=== PATIENT | male | born 1970 | race African-American/Black ===

== ENCOUNTER 2016-11-05 20:05 | Inpatient (IN) | payer BC ==
[~2016-11-05] VITALS: Ht 185.4 cm; Wt 110.3 kg
--- NOTE | ~2016-11-05 | 2DMMODE ---
[facility] [place] [address] 2 D/M-MODE ECHOCARDIOGRAM Name: KALLI BURROWS Room #: 150-7 ADM IN .R.#: [id number] Admission: 11/05/16 Attend Phys: Sarah Mahan Discharge: Date of : 68 Date of Service: 11/07/16 1420 Report #: [id number] THIS REPORT FOR: //name// Transthoracic Echocardiography Ordering David Alanis MD physician: Referring MD Arlette Patterson, physician: Houston Stanton Boarder Steam: SHAMIR Kim Indications/History: HTN, Chest pain. BP: 165 / HR: 75bpm Height: 73in Weight: 247.5lb 106 Study data: M-mode, complete 2D, complete spectral Doppler, and color Doppler. Location: Echo laboratory. Routine. Image quality was good. 2D measurements Normal Normal LVID ED 39mm 36-57 IVS ED 13mm 6-11 LVID ES 28mm 23-40 LVPW ED 12.7mm 6-11 LA volume 33ml/m2 16-28 AoRoot diam 34.2mm 21-37 index ED LVOT diameter 22mm 18-23 Findings: Left ventricle: The cavity size was normal. Wall thickness was increased in a pattern of mild LVH. Systolic function was normal. The estimated ejection fraction was in the range of 55% to 60%. Wall motion was normal. Right ventricle: The cavity size was normal. Systolic function was normal. Right atrium: The atrium was at the upper limits of normal in size. Left atrium: The atrium was at the upper limits of normal in size. Volume index: 33ml/m2 (S). [address] [address] 2 D/M-MODE ECHOCARDIOGRAM Name: KALLI BURROWS Dorothy Room #: 150[facility] IN ..#: [id number] Admission: 12/25/16 Attend Phys: Sarah Mahan Discharge: Date of : 68 Date of Service: 11/07/16 1420 Report #: [id number] Aortic valve: Structurally normal valve. Trileaflet. Doppler: There was no stenosis. No regurgitation. Peak velocity: 148cm/s (S). Mitral valve: Structurally normal valve. Doppler: There was no evidence for stenosis. Mild regurgitation. Peak E-wave velocity: 92.7cm/s. Peak gradient: 3.4mm Hg (D). Peak A-wave velocity: 100.5cm/s. Tricuspid valve: Structurally normal valve. Doppler: There was no evidence for stenosis. Trivial regurgitation. Regurgitant peak velocity: 242.4cm/s. Peak RV-RA gradient: 24mm Hg (S). Pulmonic valve: Structurally normal valve. Doppler: There was no evidence for stenosis. No regurgitation. Pericardium: There was no pericardial effusion. Aorta: Aortic root: The aortic root was normal in size. Pulmonary artery: Systolic pressure was estimated to be 29mm Hg. Diastolic function: Doppler parameters are consistent with abnormal left ventricular relaxation (grade 1 diastolic dysfunction). Systemic veins: Inferior vena cava: The vessel was normal in size; the respirophasic diameter changes were in the normal range (= 50%). <ELECTRONICALLY SIGNED> By: Ignacio Beckham MD 11/08/16 0910 1420 9 Ignacio Beckham MD /anthony
--- NOTE | ~2016-11-05 | O ---
[facility] [address] [address] OPERATIVE REPORT Name: KALLI BURROWS Room #: 204-P ADM IN M.R.#: [id number] Admission: 11/05/16 Attend Phys: Sarah Hilton Discharge: Date of : 68 Report #: [id number] THIS REPORT FOR: //name// CC: Sarah Chong PREOPERATIVE DIAGNOSIS: Coronary artery disease. POSTOPERATIVE DIAGNOSIS: Coronary artery disease. OPERATION: 1. Coronary artery bypass x 6 including left internal mammary artery to left anterior descending artery, saphenous vein to diagonal, ramus and second marginal and saphenous vein to posterior descending and posterolateral branches of the right coronary and endoscopic vein harvest, left greater saphenous vein. SURGEON: Mohsen Álvarez M.D. RUBBER DOWN: Avel. ANESTHESIA: General. INDICATIONS: The patient is a 46-year-old with severe 3-vessel coronary artery disease. The patient presented with acute coronary syndrome. Troponin peaked at 5. Cardiac catheterization by Dr. Alanis demonstrated severe 3-vessel disease. Unfortunately, there was diffuse and distal disease beyond the range of bypass. Left ventricular function satisfactory. FINDINGS AND TECHNIQUE: After general anesthesia was established, saphenous vein was harvested using an endoscopic approach and prepared for use as a conduit. Exposure was obtained through median sternotomy. Left internal mammary artery was harvested. Pericardial well was made. Cannulation sutures were placed. Heparin was given. Aorta was cannulated. Right atrium was cannulated. Cardioplegia needle was positioned in the aortic root. Retrograde cardioplegic catheter was placed in coronary sinus. Cardiopulmonary bypass was established. The aorta was cross clamped antegrade then retrograde cardioplegia were given. Ice was poured in the pericardial well. The heart was stopped. During electromechanical arrest, the distal anastomoses were performed and end-to-side anastomosis was made between vein and the posterolateral branch. This was diffusely diseased vessel and we needed to make the bypass quite distally in this vessel. Cold cardioplegia was given. Same segment of vein was sewn in end-to-side fashion to posterior descending artery and the same situation applied that the vessel was diffusely diseased and the anastomosis was made in the distal portion. Cold cardioplegia was given. A separate segment of [facility] [address] [address] OPERATIVE REPORT Name: KALLI BURROWS Room #: 204-P [facility] IN .R.#: [id number] Admission: 11/05/16 Attend Phys: Sarah Hilton Discharge: Date of : 68 Report #: [id number] vein was sewn in end-to-side fashion to the second marginal. This was a relatively large vessel. Cold cardioplegia was given. We inspected the first marginal, but I thought it was too small for bypass. Cold cardioplegia was given. A byuw-jj-iidl anastomosis was then made to ramus or proximal marginal. Cold cardioplegia was given. This was a decent size vessel. Cold cardioplegia was given. Same segment of vein was sewn in end-to-side fashion to the large diagonal. Cold cardioplegia was given. Left internal mammary artery was sewn in end-to-side fashion to left anterior descending artery. Patency of this vessel was checked with the temperature technique. Cold cardioplegia was given. Two proximal anastomoses were performed. When these were complete, warm retrograde cardioplegia was given followed by warm continuous blood to the coronary sinus. When this infusion was complete, the crossclamp was removed, de-airing maneuvers were performed. The anastomoses were inspected and found to be satisfactory. As the patient warmed, nice cardiac activity resumed, chest tubes and pacing wires were placed, a marker was placed around the proximal anastomoses. When the patient was warmed, he was weaned, he was weaned from cardiopulmonary bypass, venous cannula was removed. Protamine was given, the aortic cannula was removed. Flows were measured in the bypass grafts. Flow in the graft to the right side grafts was 54 mL per minute. Flow in the graft to the left-sided vein was 98 mL per minute. A good Doppler signal was audible in the internal mammary artery. Total cross clamp time was 116 minutes, total pump time was 133 minutes. When hemostasis was satisfactory, chest was irrigated with antibiotic solution and closed in the usual fashion. The patient was taken to the Intensive Care Unit in good condition having tolerated the procedure well. All counts reported as correct. <ELECTRONICALLY SIGNED> By: Mohsen Álvarez MD 11/13/16 0937 1927 2145 Mohsen Álvarez MD /nt
--- NOTE | ~2016-11-05 | EKG ---
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1970 Requested By: Huang Vallecillo Order Number: [id number] MD: Dany Díaz Measurements Intervals [place] Rate: 84 P: 49 [place]: 156 QRS: -7 QRSD: 87 T: 22 QT: 415 QTc: 491 Interpretive Statements Sinus rhythm Borderline prolonged QT interval Compared to ECG 11/09/2016 06:29:59 ST (T wave) deviation no longer present Electronically Signed On 11-14-2016 8:31:15 LIQUEFIED PETROLEUM GASFITTER by Dany Díaz [email or web address] <ELECTRONICALLY SIGNED> By: Dany Díaz MD, [facility] 11/14/16 0831 0758 0758 Dany Díaz MD, [facility] /EPI
--- NOTE | ~2016-11-05 | HC ---
[facility] [address] CONSULTATION Name: KALLI BURROWS Room #: 204-P ADM IN M.R.#: [id number] Admission: 11/05/16 Attend Phys: Sarah Hilton Discharge: Date of : 68 Report #: [id number] THIS REPORT FOR: //name// CC: ERENDIRA Chong DATE OF SERVICE: 11/07/2016 We were asked to see the patient by Dr. Alanis. HISTORY OF PRESENT ILLNESS: The patient is a 46-year-old with coronary artery disease. The patient was admitted November 05. He presented with acute chest pain. This was midsternal chest pain without radiation, that occurred when he was taking presents downstairs to the tree. The patient states that he had been fine up until this time. There is one remote episode several years ago of a similar nature of chest pain and the patient had been seen in the Emergency Department at that time, but released because his enzymes were normal. On this occasion, however, troponin was 0.8 and then 3.32 and then ultimately 5. Heparin and nitroglycerin drips were started and chest pain resolved. Cardiac catheterization was done today. This showed severe 3-vessel coronary disease including 70% LAD lesions, 60% diagonal, 99% proximal circumflex, 70% mid circumflex and 70% mid and proximal right coronary lesions with a 90% PDA stenosis. Left ventricular function is satisfactory. There is distal disease seen on the LAD; however, it may be beyond the scope of bypass. PAST MEDICAL HISTORY: Significant for hypertension, hypercholesterolemia. Denies history of diabetes mellitus. MEDICATIONS: Includes hydrochlorothiazide, Motrin, azilsartan, chlorthalidone, Bystolic, clonidine, irbesartan and spironolactone. ALLERGIES: None known. FAMILY HISTORY: The patient is adopted. SOCIAL HISTORY: Former one pack a day smoker, now claims to have quit cigarette smoking 3 years ago, but smokes a cigar a day. REVIEW OF SYSTEMS: Generally, no constitutional symptoms of fatigue or sleeping problems, fever or weight change. HEENT: No headache, vertigo, hearing problems, vision problems. [facility] [address] [place] [address] CONSULTATION Name: KALLI BURROWS Room #: 204-P [facility] IN ..#: [id number] Admission: 11/05/16 Attend Phys: Sarah Hilton Discharge: Date of : 68 Report #: [id number] RESPIRATORY: Some shortness of breath on exertion, no shortness of breath at rest. No wheeze, cough, sputum production. CARDIAC: As mentioned, pain two days ago, no jaw pain, arm pain, no palpitations. SKIN: No rash or infection. ENDOCRINE: Feet are occasionally cold, no night sweats, no lack of concentration. GASTROINTESTINAL: No nausea, vomiting, diarrhea, constipation. GENITOURINARY: No urgency, frequency or dysuria. NEUROLOGIC: No seizures, no neuropathy. PSYCHIATRIC: No hallucination or depression. MUSCULOSKELETAL: Denies bone and joint pain. IMMUNOLOGIC: No lupoid rash, no rheumatoid ____. HEMATOLOGIC: No anemia. LYMPHATIC: No swelling. PHYSICAL EXAMINATION: VITAL SIGNS: Blood pressure 140/99, pulse rate 71, respiratory rate 18, temperature 37.1, O2 sat 95 on room air. HEENT: Normocephalic, gaze conjugate. Pupils round and equal. No arcus. No icterus. NECK: No lymphadenopathy, no bruit. CHEST: Clear to auscultation. HEART: Rhythm regular, no murmurs. ABDOMEN: Soft, no mass, no tenderness, slightly distended. EXTREMITIES: No clubbing, cyanosis or edema. SKIN: No rash or infection. Normal color and turgor. EXTREMITIES: Pulses 2+ femoral bilaterally, 2+ popliteal bilaterally, 1+ dorsalis pedis and posterior tibial bilaterally. NEUROLOGIC: No motor or sensory dysfunction. Oriented and appropriate. MUSCULOSKELETAL: No bone or joint dyssymmetry or deformity. PSYCHIATRIC: Shows insight into problem. Mood is either artificially elevated or depressed. ASSESSMENT: The patient has important 3-vessel coronary artery disease with good ventricular function. The patient has impressive list of antihypertensive medications and with his tobacco history and some dyslipidemia, has some risk factors for coronary disease. I agree that the disease is widely distributed and that surgery would be a better alternative at the outset. Risks and details were discussed. Options and alternatives were reviewed. The patient understands that risks include but are not limited to bleeding, infection, anesthesia risks, heart and lung problems, stroke and options and alternatives were reviewed. The patient understands all of this and wishes to proceed. We hope to proceed with surgery tomorrow morning. [address] [address] CONSULTATION Name: KALLI BURROWS Room #: 204-P [facility] IN M.R.#: [id number] Admission: 11/05/16 Attend Phys: Sarah Hilton Discharge: Date of : 68 Report #: [id number] Thank you for the consult. <ELECTRONICALLY SIGNED> By: Mohsen Álvarez MD 11/13/16 0937 1346 2214 Mohsen Álvarez MD /nt
--- NOTE | ~2016-11-05 | EKG ---
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
--- NOTE | ~2016-11-05 | EKG ---
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
--- NOTE | ~2016-11-05 | EKG ---
[address] [place] [address] ELECTROCARDIOGRAM REPORT Name: KALLI BURROWS Room #: 236-P ADM IN M.R.#: [id number] Admission: 11/05/16 Attend Phys: Sarah Hilton Discharge: Date of : 68 Report #: [id number] THIS REPORT FOR: //name// [facility] ED Test Date: 2016-11-05 Test Time: 20:14:26 Pat Name: KALLI BURROWS Department: Room: [facility] Gender: M Algebra Teacher: SHALA : 1970 Requested By: Nadine Ferrari Order Number: [id number] MD: Benji Dang Measurements Intervals [place] Rate: 75 P: 11 [place]: 172 QRS: 13 QRSD: 100 T: -17 QT: 379 QTc: 424 Interpretive Statements Sinus rhythm Borderline repolarization abnormality No previous ECG available for comparison Electronically Signed On 11-09-2016 15:40:42 BRAND MANAGER by Benji Dang [email or web address] <ELECTRONICALLY SIGNED> By: Benji Dang MD 11/09/16 1540 13 13 Benji Dang MD /ARNOL
--- NOTE | ~2016-11-05 | HC ---
[facility] [place] [address] CONSULTATION Name: KALLI BURROWS Room #: 206-P ADM IN M.R.#: [id number] Admission: 11/05/16 Attend Phys: Sarah Hilton Discharge: Date of : 68 Report #: [id number] THIS REPORT FOR: //name// CC: Sarah Chong HISTORY OF PRESENT ILLNESS: The patient is a 46-year-old -[place] male well known to myself. I see him irregularly. Although he has been very stable from a cardiovascular perspective, predominantly I have seen him for hypertension. He has not had a history of documented coronary disease. He denies PND or orthopnea, but has had an onset of sharp chest pain going up and down the steps on Megan Antonella night. This waxed and waned throughout the night and on yesterday, [place] and subsequently brought in to the emergency room. Somewhat of an atypical presentation and that inspiration seemed to make it worse. There have been no history or any change in his exercise tolerance. No PND or orthopnea. He is relatively active, but does not regularly exercise. A 54-igyz-zneg smoker, tobacco, but quit 3 years ago. Has a cigar a day, which he does inhale more of a cigarillo type. EKG has some nonspecific changes. His troponin has a slight elevation. He is pain free on a heparin and nitro drip. He was hypertensive upon admission. I put him on edarbyclor. Done well with the edarbyclor 40/25. Hydrochlorothiazide had been stopped, occasional ibuprofen which I will hold right now and Bystolic 20 mg a day. clonidine, Bystolic and edarbyclor. Clonidine 0.3 at night. PAST MEDICAL HISTORY: Positive for refractory hypertension, hypertriglyceridemia, currently over 400, hypercholesterolemia, DJD, tobacco use. SOCIAL HISTORY: He is with children. 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 No drugs. No significant alcohol. Smokes cigars. FAMILY HISTORY: Negative for premature coronary disease. REVIEW OF SYSTEMS: Essentially negative except for some occasional nocturia. LABORATORY WORK: Sodium 140, potassium 3.5, BUN 26, creatinine 1.7. Cholesterol 205, triglycerides 430, troponin is 3.32. Chest CT is normal. PHYSICAL EXAMINATION: GENERAL: Pleasant, alert. He is on heparin, nitro drip. VITAL SIGNS: Blood pressure 150/92. HEENT: Eyes reveal xanthelasmas. Pharynx is clear. NECK: Shows preserved upstrokes without JVD or bruits. LUNGS: Clear. CARDIOVASCULAR: soft S4, S1, S2. ABDOMEN: Soft except some abdominal bruit. EXTREMITIES: No edema. Pulses intact. [facility] [address] [place] [address] CONSULTATION Name: KALLI BURROWS Room #: 206-P ADM IN M.R.#: [id number] Admission: 11/05/16 Attend Phys: Sarah Hilton Discharge: Date of : 68 Report #: [id number] NEUROLOGIC: Nonfocal. SKIN: Warm and dry without xanthoma or ulcer. MUSCULOSKELETAL: No gross joint deformity. ASSESSMENT: 1. Non-ST elevation myocardial infarction, currently pain free. Troponin 3.3. 2. Refractory hypertension. 3. Hypertriglyceridemia. 4. Hypercholesterolemia. RECOMMENDATIONS AND PLAN: 1. We will hold the NSAIDs. 2. Chronic kidney disease. We will hold the ARB. We will start initiating fluids in the a.m., proceed to the catheterization lab in the a.m. to delineate the anatomy. We will continue the heparin and nitro drips until that time, repeat the EKG and echo in the morning. Risks, benefits, alternatives discussed with the patient and his . They do elect to proceed in the a.m. He will notify the nursing if he has any recurrent chest pain. <ELECTRONICALLY SIGNED> By: David Alanis MD, FACC 11/07/16 0955 0959 1219 David Alanis MD, FACC /nt
--- NOTE | ~2016-11-05 | EKG ---
[address] [place] [address] ELECTROCARDIOGRAM REPORT Name: KALLI BURROWS Room #: 236-P ADM IN M.R.#: [id number] Admission: 11/05/16 Attend Phys: Sarah Hilton Discharge: Date of : 68 Report #: [id number] THIS REPORT FOR: //name// [facility] Test Date: 2016-11-07 Test Time: 11:02:22 Pat Name: KALLI BURROWS Department: Room: [facility] Gender: M Recycling Operator: Andi NAVARRO : 1970 Requested By: David Alanis Order Number: [id number] MD: Benji Dang Measurements Intervals [place] Rate: 72 P: 28 [place]: 176 QRS: 2 QRSD: 90 T: 51 QT: 414 QTc: 454 Interpretive Statements Sinus rhythm No previous ECG available for comparison Electronically Signed On 11-10-2016 10:39:51 SEAT MAKER by Benji Dang [email or web address] <ELECTRONICALLY SIGNED> By: Benji Dang MD 11/10/16 1039 1102 1102 MD ROSSY Hernandes
--- NOTE | ~2016-11-05 | HC ---
[facility] [place] [address] CONSULTATION Name: KALLI BURROWS Room #: 204-P ADM IN M.R.#: [id number] Admission: 11/05/16 Attend Phys: Sarah Hilton Discharge: Date of : 68 Report #: [id number] THIS REPORT FOR: //name// CC: Sarah Villarrealky DATE OF SERVICE: 11/09/2016 REASON FOR CONSULTATION: Acute kidney injury, post coronary artery bypass surgery. HISTORY OF PRESENT ILLNESS: This 46-year-old male has no known prior history of renal difficulties. He has had significant and difficult to control hypertension. He initially presented to the hospital on after developing chest pain and shortness of breath while carrying packages. Evaluation revealed evidence of a non-ST elevation myocardial infarction with elevated troponin. He subsequently underwent cardiac catheterization revealing evidence of significant coronary artery disease including an LAD diagonal of 75% calcified lesion, right coronary artery with multiple high-grade lesions. Renal arteries were studied at that time and were widely patent. LV ejection fraction was 60%. The patient underwent coronary artery bypass surgery by Dr. Álvarez on November 08 which was uncomplicated. Postoperatively, his blood pressure proved difficult to control and he developed a rising serum creatinine with a value which peaked at 2.1 prompting renal consultation. Of note is that the patient's glucose values have been on the high side during the course of this hospitalization. Hemoglobin A1c has been obtained and is 6.1. PAST MEDICAL HISTORY: Remarkable for hypertension as described. He has dyslipidemia. MEDICATIONS: On admission include clonidine 0.3 mg at bedtime, Bystolic 20 mg daily, ibuprofen 200 mg q.4 hours p.r.n., hydrocodone 25 mg daily, azilsartan/chlorthalidone 40/25 daily. PERSONAL AND SOCIAL HISTORY: The patient is . He does use tobacco in the form of cigars daily. He does not use alcohol and has no history of substance abuse. REVIEW OF SYSTEMS: Remarkable for dyspnea on exertion. He denies productive cough, hemoptysis, nausea, vomiting, diarrhea, constipation or GI blood loss. PHYSICAL EXAMINATION: GENERAL: Reveals a well-developed, well-nourished male appearing his stated age, in no acute distress. VITAL SIGNS: On Cardene drip at this time are 110/56, pulse 84, respirations 18. [address] [address] CONSULTATION Name: KALLI BURROWS Room #: 204-P [facility] IN M.R.#: [id number] Admission: 11/05/16 Attend Phys: Sarah Hilton Discharge: Date of : 68 Report #: [id number] SKIN: Warm and dry without rash or erythema. There is no gross clubbing, cyanosis, edema or adenopathy. HEENT: The head is normocephalic and atraumatic. The sclerae are white. Conjunctivae are not injected. The pharynx is benign. NECK: Supple. LUNGS: Lung yang are grossly clear to percussion and auscultation. CARDIOVASCULAR: Reveals a regular rate and rhythm without rub. ABDOMEN: Soft and nontender. NEUROLOGIC: Reveals the patient to be alert and cooperative with a nonfocal exam. LABORATORY STUDIES: Available at the time of consultation include sodium 139, potassium 4.1, chloride 103, CO2 21, BUN 32, creatinine 1.9, glucose 138. White blood cell count 26,700, hemoglobin 12.6, hematocrit 37.7, platelet count 232,000. Urinalysis preoperatively clear yellow urine, specific gravity less than 1.005, pH 6, negative for glucose, ketones, bilirubin, trace blood. ASSESSMENT: 1. Renal insufficiency in the setting of accelerated hypertension on Cardene drip, post coronary artery bypass surgery. The patient's current blood pressure is relatively low Compared to his usual treated blood pressure. In the setting of coronary artery bypass surgery and suspected degree of hypertensive nephrosclerosis. This is likely accountable for his present renal dysfunction. His initial urinalysis shows no indications of any proteinuria or cellular activity making an intrinsic renal process such as glomerulonephritis quite unlikely. At this time, I would add lisinopril to his current antihypertensive regimen including amlodipine, beta ethel and attempt to wean and discontinue the Cardene. He is also showing signs of prediabetes and should be counseled in this regard. 2. Status post coronary artery bypass surgery. 3. Dyslipidemia. PLAN: I will obtain urine studies including sodium, creatinine and protein and initiate medication changes as above. We will follow the patient closely with you. I have counseled the patient and his family in this regard. We will follow closely. <ELECTRONICALLY SIGNED> By: Nikolay Chi MD 11/13/16 0703 [id number] [id number] Nikolay Chi MD /nt
--- NOTE | ~2016-11-05 | CATHLAB ---
[facility] [address] [place] [address] INVASIVE PROCEDURE REPORT Name: KALLI BURROWS Room #: 204-P [facility] IN .R.#: [id number] Admission: 11/05/16 Attend Phys: Sarah Mahan Discharge: 11/13/16 Date of : 68 Date of Service: 11/07/16 0949 Report #: [id number] THIS REPORT FOR: //name// CC: Sarah Chong PROCEDURES: Left ventriculography, coronary angiography. DESCRIPTION OF PROCEDURE: The patient brought to the catheterization lab, had a non-STEMI, pain-free heparin and nitroglycerin. Right groin prepped and draped in sterile manner. Then 1% Xylocaine was used for local anesthesia. Versed was given for conscious sedation. High-grade lesion in the right, proximal right 70, midvessel 75, mid distal 80, PDA mid high grade. Proximal circumflex prior to trifurcation, vessel subtotally occluded. The first OM was well preserved, the second OM subtotal, third OM mildly diseased, eccentric proximal LAD lesion, calcified 75% at the diagonal takeoff, and there is a distal apical lesion in the LAD. LV function is preserved. Selective renal arteries due to refractory hypertension, widely patent single bilateral renal arteries with the JR4. Mynx closure was utilized. May need CV surgical consultation. Complex 3-vessel disease with preserved LV function. HEMODYNAMICS: Aortic 160/100, LV 164/12. IMPRESSION: 1. Left main, mild, fairly well preserved left main, large with mild disease. LAD has an eccentric proximal lesion at the diagonal takeoff 70-75% with calcification in an apical lesion in the LAD, otherwise, preserved proximal diagonal 50 to 60. 2. Circumflex proximal lesion subtotal giving rise to 3 OM branches, first OM fairly well preserved, OM2 high grade subtotal occlusion proximal with mid to distal vessel widely patent OM3 mildly diseased. 3. Dominant right with multiple high-grade lesions and ____ 70-75% proximal ____, mid distal and then a mid PDA lesion which is subtotal. 4. Normal left ventricular size and systolic function, EF 60%. 5. Single bilateral renal arteries widely patent. RECOMMENDATIONS: CV surgical consultation regarding revascularization with bypass ____ is a very complex anatomy. Further discussion with CV surgery. Hemodynamically stable and pain free. Transfer back to CCU. Mynx closure device was utilized at the femoral artery without complications. <ELECTRONICALLY SIGNED> By: David Alanis MD, FACC 11/22/16 0935 0949 09 David Alanis MD, FACC /nt
--- NOTE | ~2016-11-05 | HC ---
[facility] [place] [address] CONSULTATION Name: KALLI BURROWS Room #: 236-P [facility] IN M.R.#: [id number] Admission: 11/05/16 Attend Phys: Sarah Hilton Discharge: Date of : 68 Report #: [id number] THIS REPORT FOR: //name// CC: Sarah Chong INFECTIOUS DISEASE CONSULTATION REASON FOR CONSULTATION: I was asked to evaluate concerning leukocytosis. HISTORY OF PRESENT ILLNESS: The patient is a 46-year-old with underlying history of hypertension, hyperlipidemia, presented on 11/05/2016, with hypertensive urgency and non-STEMI. Coronary catheterization on 11/07/2016 revealed significant obstructive vascular disease and underwent coronary bypass grafting on 11/08/2016. Postoperatively, he has been relatively stable. He has been extubated. He remains on oxygen per nasal cannula. He has had no significant cough or sputum production. No gross aspiration. His chest tubes remain in place. No cardiac dysrhythmias of note. Neurologically he has been intact. He has a right IJ catheter in place, indwelling Mckeon catheter. His white count on presentation was 14,000, increased to 16,000 preoperatively and has been ____ postoperatively. The patient denies any infectious symptoms prior to his presentation. ALLERGIES: None. MEDICATIONS: As noted on his MAR, now on cefazolin for his perioperative prophylaxis. PAST MEDICAL HISTORY: Hypertension, hyperlipidemia. FAMILY HISTORY: Noncontributory. He is adopted. SOCIAL HISTORY: He is a smoker of cigarettes in the past. No significant alcohol intake. REVIEW OF SYSTEMS: Negative, has been described above, with no increased drainage from his sternum or from his left leg ____. No diarrhea. PHYSICAL EXAMINATION: VITAL SIGNS: He is afebrile, hemodynamically stable. GENERAL: He is sitting up in a chair, alert and cooperative. HEENT: Unremarkable. Right IJ catheter site unremarkable. NECK: Otherwise supple, no adenopathy. LUNGS: Crackles in the bases bilaterally, mostly on the left. CARDIOVASCULAR: Heart was regular with a rub audible anterior chest, loudest left sternal border. Chest tubes in place. ABDOMEN: Soft, nontender, no hepatosplenomegaly or mass. [facility] [address] [place] [address] CONSULTATION Name: KALLI BURROWS Room #: 236-P [facility] IN .R.#: [id number] Admission: 11/05/16 Attend Phys: Sarah Hilton Discharge: Date of : 68 Report #: [id number] EXTREMITIES: Left lower extremity incisions dressed and dry. LABORATORY STUDIES: Sodium 129, potassium 4.1, bicarbonate 21, creatinine 1.9. Liver function test normal. Hemoglobin on presentation was 15, now 12.6, platelet count 232,000, white count was 26,000. Chest x-ray showed basilar atelectasis. IMPRESSION: A 46-year-old postoperative day 1, coronary artery bypass grafting. He has leukocytosis, which I suspect is mostly reactive in nature. He does have a pericardial rub, which I suspect most likely is related to his chest tubes. We will need to follow this as tubes are removed. He has not had any fevers associated with this to suspect underlying infection or postoperative inflammatory condition. Recommend observation. We will continue his cefazolin prophylaxis. We will follow as his chest tubes are removed. <ELECTRONICALLY SIGNED> By: Haile Waldron MD 11/10/16 0958 [id number] Haile Waldron MD /nt
[~2016-11-05 20:05] MED LIST: ATENOLOL 25 MG25 M1 PO; CLONIDINE0.1 PO; HYDROCHLOROTHIA25 M1 PO
[2016-11-05 20:13] VITALS: BP 158/107
[2016-11-05] MEDS ORDERED: ALDACTONE25 MG PO (20:24)
[2016-11-05] MEDS ORDERED: AVAPRO300 MG PO (20:25)
[2016-11-05] MEDS ORDERED: EDARBYCLOR 40-1 EAC1 PO (20:26)
[2016-11-05] MEDS ORDERED: BYSTOLIC 5 MG5 M1 PO (20:26)
[2016-11-05 20:47] LABS: ABSOLUTE NEUTROPHILS 10.3 thou/uL (1.4-8.2); BASOPHILS 1.1 % (0.0-2.0); EOSINOPHILS 0.8 % (0.0-3.0); HEMOGLOBIN 15.1 gm/dL (14.0-18.0); LYMPHOCYTES 18.9 % (24.0-44.0); MCH 29.7 pg (26.0-34.0); MCHC 34.3 % (28.0-37.0); MCV 86.4 fL (80.0-100.0); MONOCYTES 10.3 % (1.0-8.0); PLATELET COUNT 329 thou/uL (150-400); POLYS 68.9 % (36.0-66.0); RBC 5.09 mil/uL (4.50-6.00); RDW 14.6 % (10.5-14.5); WBC 14.9 thou/uL (4.0-11.0)
[2016-11-05 20:48] LABS: MANUAL DIFF NO
[2016-11-05 20:53] LABS: CALCIUM 10.5 mg/dL (8.5-10.1); CREATININE 1.7 mg/dL (0.6-1.3); POTASSIUM 3.5 mmol/L (3.5-5.1)
[2016-11-05 21:05] LABS: TROPONIN-I 0.8 ng/mL (<0.04-0.07)
[2016-11-05 22:25] VITALS: BP 130/94
[2016-11-05 22:30] VITALS: BP 106/66
[2016-11-05] MEDS ORDERED: IBUPROFEN 200200 M1 PO (22:43)
[2016-11-05 22:44] VITALS: BP 106/66
[2016-11-06] VITALS (7 sets, daily range): BP systolic 110–153; BP diastolic 71–103
[2016-11-06 03:16] LABS: CHOLESTEROL 205 mg/dL (<200); HDL CHOLESTEROL 34 mg/dL (>40); TRIGLYCERIDE 430 mg/dL (<150); VLDL 86 mg/dL (<40)
[2016-11-06 03:17] LABS: SERUM ASSESSMENT Slight Lipemia
[2016-11-07 00:16] VITALS: BP 156/113
[2016-11-07 03:39] LABS: CALCIUM 9.3 mg/dL (8.5-10.1); CREATININE 1.7 mg/dL (0.6-1.3); POTASSIUM 3.6 mmol/L (3.5-5.1)
[2016-11-07 04:19] VITALS: BP 140/99
[2016-11-07 11:05] VITALS: BP 165/106
[2016-11-07 11:59] LABS: HEMATOCRIT 44.6 % (42.0-52.0); HEMOGLOBIN 15.2 gm/dL (14.0-18.0); MCH 29.6 pg (26.0-34.0); MCHC 34.1 % (28.0-37.0); MCV 86.6 fL (80.0-100.0); RBC 5.15 mil/uL (4.50-6.00); RDW 14.2 % (10.5-14.5); WBC 11.6 thou/uL (4.0-11.0)
[2016-11-07 12:07] LABS: CALCIUM 9.4 mg/dL (8.5-10.1); CREATININE 1.5 mg/dL (0.6-1.3); POTASSIUM 3.7 mmol/L (3.5-5.1)
[2016-11-07 12:13] LABS: ALBUMIN 3.6 g/dL (3.4-5.0); TOTAL BILIRUBIN 0.5 mg/dL (<0.1-1.0); TOTAL PROTEIN 7.5 g/dL (6.4-8.2)
[2016-11-07 16:44] VITALS: BP 170/112
[2016-11-07 17:06] LABS: URINE BILIRUBIN NEGATIVE (Negative); URINE BLOOD TRACE (Negative); URINE COLOR YELLOW; URINE GLUCOSE-RANDOM* NEGATIVE (Negative); URINE KETONES NEGATIVE (Negative); URINE LEUKOCYTES-REFLEX NEGATIVE (Negative); URINE PROTEIN (DIPSTICK) NEGATIVE (Negative); URINE SPECIFIC GRAVITY <= 1.005 (1.003-1.035); URINE UROBILINOGEN 0.2 E.U./dl (0.2-1.0)
[2016-11-07 19:42] VITALS: BP 135/96
[2016-11-07 23:19] VITALS: BP 152/94
[2016-11-08 05:23] VITALS: BP 147/95
[2016-11-08 05:25] VITALS: BP 164/99
[2016-11-08 06:12] LABS: HEMATOCRIT 47.6 % (42.0-52.0); HEMOGLOBIN 16.1 gm/dL (14.0-18.0); MCH 29.7 pg (26.0-34.0); MCHC 33.7 % (28.0-37.0); RBC 5.42 mil/uL (4.50-6.00); RDW 14.3 % (10.5-14.5)
[2016-11-08 06:41] LABS: CALCIUM 9.9 mg/dL (8.5-10.1); CREATININE 1.8 mg/dL (0.6-1.3)
[2016-11-08 06:44] LABS: TROPONIN-I 2.5 ng/mL (<0.04-0.07)
[2016-11-08 13:38] LABS: POC BE 0 mmol/L (-2.0 to +3.0); POC CA IONIZED 4.3 mg/dL (4.5-5.3); POC FiO2 100 %; POC GLUCOSE 159 mg/dL (70-99); POC HEMOGLOBIN 10.9 gm/dL (14.0-18.0); POC POTASSIUM 5.6 mmol/L (3.5-5.1); POC SODIUM 134 mmol/L (136-145); POC pH 7.333 (7.360-7.450)
[2016-11-08 13:38] LABS: POC BE -3 mmol/L (-2.0 to +3.0); POC CA IONIZED 4.9 mg/dL (4.5-5.3); POC FiO2 100 %; POC GLUCOSE 133 mg/dL (70-99); POC HCO3 21.7 mmol/L (22.0-26.0); POC HEMOGLOBIN 9.9 gm/dL (14.0-18.0); POC POTASSIUM 4.6 mmol/L (3.5-5.1); POC SODIUM 137 mmol/L (136-145); POC pCO2 36.8 mmHg (35.0-45.0); POC pH 7.378 (7.360-7.450)
[2016-11-08 13:38] LABS: POC BE -4 mmol/L (-2.0 to +3.0); POC CA IONIZED 4.1 mg/dL (4.5-5.3); POC FiO2 100 %; POC GLUCOSE 149 mg/dL (70-99); POC HEMOGLOBIN 10.9 gm/dL (14.0-18.0); POC POTASSIUM 5.6 mmol/L (3.5-5.1); POC SODIUM 134 mmol/L (136-145); POC pCO2 43.1 mmHg (35.0-45.0); POC pH 7.316 (7.360-7.450)
[2016-11-08 13:38] LABS: POC BE -1 mmol/L (-2.0 to +3.0); POC CA IONIZED 4.5 mg/dL (4.5-5.3); POC FiO2 100 %; POC GLUCOSE 149 mg/dL (70-99); POC HCO3 23.2 mmol/L (22.0-26.0); POC HEMOGLOBIN 12.9 gm/dL (14.0-18.0); POC POTASSIUM 4.8 mmol/L (3.5-5.1); POC SODIUM 136 mmol/L (136-145); POC pCO2 35.4 mmHg (35.0-45.0); POC pH 7.425 (7.360-7.450)
[2016-11-08 13:38] LABS: POC BE -2 mmol/L (-2.0 to +3.0); POC CA IONIZED 4.1 mg/dL (4.5-5.3); POC FiO2 100 %; POC GLUCOSE 151 mg/dL (70-99); POC HCO3 24.4 mmol/L (22.0-26.0); POC HEMOGLOBIN 10.5 gm/dL (14.0-18.0); POC POTASSIUM 5.6 mmol/L (3.5-5.1); POC SODIUM 133 mmol/L (136-145); POC pCO2 46.1 mmHg (35.0-45.0); POC pH 7.332 (7.360-7.450)
[2016-11-08 13:38] LABS: POC BE -1 mmol/L (-2.0 to +3.0); POC CA IONIZED 4.3 mg/dL (4.5-5.3); POC FiO2 100 %; POC GLUCOSE 153 mg/dL (70-99); POC HCO3 24.4 mmol/L (22.0-26.0); POC HEMOGLOBIN 10.5 gm/dL (14.0-18.0); POC POTASSIUM 5.9 mmol/L (3.5-5.1); POC SODIUM 136 mmol/L (136-145); POC pCO2 45.6 mmHg (35.0-45.0); POC pH 7.336 (7.360-7.450)
[2016-11-08 13:38] LABS: POC BE 0 mmol/L (-2.0 to +3.0); POC CA IONIZED 4.7 mg/dL (4.5-5.3); POC FiO2 100 %; POC GLUCOSE 118 mg/dL (70-99); POC HCO3 24.4 mmol/L (22.0-26.0); POC HEMOGLOBIN 14.3 gm/dL (14.0-18.0); POC POTASSIUM 4.3 mmol/L (3.5-5.1); POC SODIUM 138 mmol/L (136-145); POC pCO2 39.9 mmHg (35.0-45.0); POC pH 7.396 (7.360-7.450)
[2016-11-08 13:38] LABS: POC BE -1 mmol/L (-2.0 to +3.0); POC CA IONIZED 4.3 mg/dL (4.5-5.3); POC FiO2 100 %; POC GLUCOSE 156 mg/dL (70-99); POC HCO3 24.1 mmol/L (22.0-26.0); POC HEMOGLOBIN 10.5 gm/dL (14.0-18.0); POC POTASSIUM 5.7 mmol/L (3.5-5.1); POC SODIUM 134 mmol/L (136-145); POC pCO2 43.4 mmHg (35.0-45.0); POC pH 7.353 (7.360-7.450)
[2016-11-08 13:39] LABS: POC BE -3 mmol/L (-2.0 to +3.0); POC CA IONIZED 4.8 mg/dL (4.5-5.3); POC FiO2 100 %; POC GLUCOSE 140 mg/dL (70-99); POC HEMOGLOBIN 11.9 gm/dL (14.0-18.0); POC POTASSIUM 4.4 mmol/L (3.5-5.1); POC SODIUM 137 mmol/L (136-145)
[2016-11-08 14:00] LABS: ABG SAMPLE TYPE ARTERIAL; BE(vivo) -1.9 mmol/L (-2 to +3); HCO3 22.9 mmol/L (22.0-26.0); LACTATE 3.13 mmol/L (0.5-2.0); O2(CT) 18.8 mL/dL (15.0-23.0); PCO2 39.5 mmHg (35.0-45.0); PO2 93.5 mmHg (80.0-100.0); pH 7.382 (7.360-7.450); sO2 97.1 % (92.0-98.0); tCO2 24.2 mmol/L (24.0-30.0)
[2016-11-08 14:01] LABS: STICK SITE LINE
[2016-11-08 14:02] LABS: ABG COMMENT POST OP ON ARRIVAL; TIDAL VOLUME 750 ml
[2016-11-08 14:04] VITALS: BP 114/86
[2016-11-08 14:07] LABS: HEMATOCRIT 38.4 % (42.0-52.0); MCH 29.4 pg (26.0-34.0); MCV 86.5 fL (80.0-100.0); RBC 4.44 mil/uL (4.50-6.00); RDW 14.3 % (10.5-14.5); WBC 26.6 thou/uL (4.0-11.0)
[2016-11-08 14:15] VITALS: BP 125/85
[2016-11-08 14:15] LABS: CALCIUM 8.3 mg/dL (8.5-10.1); POTASSIUM 4.2 mmol/L (3.5-5.1)
[2016-11-08 15:32] LABS: ABG SAMPLE TYPE ARTERIAL; BE(vivo) -3.4 mmol/L (-2 to +3); HCO3 21.8 mmol/L (22.0-26.0); LACTATE 3.03 mmol/L (0.5-2.0); O2(CT) 19.4 mL/dL (15.0-23.0); O2Hb 94.9 % (92.0-98.0); PCO2 39.7 mmHg (35.0-45.0); PO2 83.8 mmHg (80.0-100.0); Pressure Support 10 cm H20; STICK SITE LINE; TIDAL VOLUME 610 ml; pH 7.357 (7.360-7.450); sO2 95.9 % (92.0-98.0)
[2016-11-08 15:33] LABS: ABG COMMENT 45 MIN CPAP TRIAL
[2016-11-08 17:13] LABS: ABG SAMPLE TYPE ARTERIAL; BE(vivo) -4.1 mmol/L (-2 to +3); LACTATE 3.63 mmol/L (0.5-2.0); O2(CT) 19.3 mL/dL (15.0-23.0); O2Hb 94.5 % (92.0-98.0); PCO2 38.8 mmHg (35.0-45.0); PO2 81.3 mmHg (80.0-100.0); STICK SITE LINE; pH 7.352 (7.360-7.450); sO2 95.6 % (92.0-98.0); tCO2 22.2 mmol/L (24.0-30.0)
[2016-11-08 17:14] LABS: Face Shield 50% %
[2016-11-08 18:52] LABS: HEMATOCRIT 39.6 % (42.0-52.0); HEMOGLOBIN 13.3 gm/dL (14.0-18.0); MCH 29.3 pg (26.0-34.0); MCHC 33.6 % (28.0-37.0); RBC 4.55 mil/uL (4.50-6.00); RDW 14.4 % (10.5-14.5); WBC 25.5 thou/uL (4.0-11.0)
[2016-11-08 18:59] LABS: CALCIUM 8.7 mg/dL (8.5-10.1); CREATININE 2.1 mg/dL (0.6-1.3); POTASSIUM 3.9 mmol/L (3.5-5.1)
[2016-11-09 05:48] LABS: ABG SAMPLE TYPE ARTERIAL; BE(vivo) -1.7 mmol/L (-2 to +3); HCO3 22.5 mmol/L (22.0-26.0); LACTATE 2.82 mmol/L (0.5-2.0); O2(CT) 17.9 mL/dL (15.0-23.0); O2Hb 94.1 % (92.0-98.0); PCO2 36.5 mmHg (35.0-45.0); PO2 71.3 mmHg (80.0-100.0); STICK SITE LINE; pH 7.408 (7.360-7.450); sO2 94.6 % (92.0-98.0); tCO2 23.6 mmol/L (24.0-30.0)
[2016-11-09 05:49] LABS: Face Shield 60 %
[2016-11-09 05:59] LABS: HEMATOCRIT 37.7 % (42.0-52.0); HEMOGLOBIN 12.6 gm/dL (14.0-18.0); MCH 29.1 pg (26.0-34.0); MCHC 33.3 % (28.0-37.0); MCV 87.6 fL (80.0-100.0); PLATELET COUNT 232 thou/uL (150-400); RBC 4.31 mil/uL (4.50-6.00); RDW 14.7 % (10.5-14.5); WBC 26.7 thou/uL (4.0-11.0)
[2016-11-09 06:02] LABS: MANUAL DIFF YES
[2016-11-09 06:20] VITALS: BP 117/71
[2016-11-09 06:24] LABS: ALBUMIN 3.2 g/dL (3.4-5.0); CALCIUM 8.7 mg/dL (8.5-10.1); CREATININE 1.9 mg/dL (0.6-1.3); MAGNESIUM 2.4 mg/dL (1.8-2.4); POTASSIUM 4.1 mmol/L (3.5-5.1); TOTAL BILIRUBIN 0.6 mg/dL (<0.1-1.0); TOTAL PROTEIN 6.4 g/dL (6.4-8.2)
[2016-11-09 06:50] LABS: ABSOLUTE NEUTROPHILS 21.6 thou/uL (1.4-8.2); METAMYELOCYTES 1 %; TOTAL CELL COUNT 100
[2016-11-09 15:01] LABS: URINE BILIRUBIN NEGATIVE (Negative); URINE BLOOD 2+ (Negative); URINE COLOR YELLOW; URINE GLUCOSE-RANDOM* NEGATIVE (Negative); URINE KETONES NEGATIVE (Negative); URINE NITRITE NEGATIVE (Negative); URINE PROTEIN (DIPSTICK) NEGATIVE (Negative); URINE SPECIFIC GRAVITY >= 1.030 (1.003-1.035); URINE UROBILINOGEN 0.2 E.U./dl (0.2-1.0)
[2016-11-09 15:10] LABS: BACTERIA 1-9 Few /HPF (None Seen); HYALINE CASTS 0-3 Few /LPF (None Seen); SQUAMOUS None Seen /LPF (0-3); URINE RBC 3-10 Few /HPF (0-2); URINE WBC 0-5 Rare /HPF (0-5)
[2016-11-09 15:11] LABS: CRYSTALS None Seen /LPF (None Seen)
[2016-11-09 22:35] VITALS: BP 118/74
[2016-11-09 23:08] LABS: GLYCOHEMOGLOBIN (HGB A1C) 6.1 % (4.8-5.6)
[2016-11-10] VITALS (8 sets, daily range): BP systolic 101–125; BP diastolic 61–77
[2016-11-10 02:06] LABS: URINE PROTEIN-RANDOM* 26.9 mg/dL (Not Estab.)
[2016-11-10 04:17] LABS: HEMATOCRIT 33.6 % (42.0-52.0); HEMOGLOBIN 11.2 gm/dL (14.0-18.0); MCH 29.5 pg (26.0-34.0); MCHC 33.4 % (28.0-37.0); MCV 88.4 fL (80.0-100.0); PLATELET COUNT 208 thou/uL (150-400); RDW 14.7 % (10.5-14.5); WBC 25.5 thou/uL (4.0-11.0)
[2016-11-10 04:25] LABS: CALCIUM 8.9 mg/dL (8.5-10.1); CREATININE 1.7 mg/dL (0.6-1.3); MAGNESIUM 2.4 mg/dL (1.8-2.4); PHOSPHORUS 3.8 mg/dL (2.5-4.9); POTASSIUM 4.4 mmol/L (3.5-5.1)
[2016-11-10 04:36] LABS: MANUAL DIFF YES
[2016-11-10 04:43] LABS: ABG SAMPLE TYPE ARTERIAL; HCO3 25.8 mmol/L (22.0-26.0); LACTATE 2.14 mmol/L (0.5-2.0); O2(CT) 15.6 mL/dL (15.0-23.0); PCO2 37.3 mmHg (35.0-45.0); PO2 67.6 mmHg (80.0-100.0); pH 7.457 (7.360-7.450); sO2 94.4 % (92.0-98.0); tCO2 26.9 mmol/L (24.0-30.0)
[2016-11-10 04:44] LABS: STICK SITE LINE
[2016-11-10 06:47] LABS: ABSOLUTE NEUTROPHILS 21.7 thou/uL (1.4-8.2); METAMYELOCYTES 1 %; TOTAL CELL COUNT 100
[2016-11-11 04:40] LABS: HEMATOCRIT 31.4 % (42.0-52.0); HEMOGLOBIN 10.4 gm/dL (14.0-18.0); MCH 29.6 pg (26.0-34.0); MCHC 33.2 % (28.0-37.0); MCV 89.3 fL (80.0-100.0); PLATELET COUNT 224 thou/uL (150-400); RBC 3.52 mil/uL (4.50-6.00); RDW 14.4 % (10.5-14.5); WBC 21.7 thou/uL (4.0-11.0)
[2016-11-11 04:41] LABS: MANUAL DIFF YES
[2016-11-11 04:53] LABS: ALBUMIN 2.7 g/dL (3.4-5.0); CALCIUM 8.9 mg/dL (8.5-10.1); CREATININE 1.5 mg/dL (0.6-1.3); PHOSPHORUS 2.8 mg/dL (2.5-4.9); POTASSIUM 4.2 mmol/L (3.5-5.1)
[2016-11-11 05:02] LABS: ABSOLUTE NEUTROPHILS 17.8 thou/uL (1.4-8.2); TOTAL CELL COUNT 100
[2016-11-11 05:03] LABS: PLATELET ESTIMATE NORMAL
[2016-11-11 05:45] VITALS: BP 123/82
[2016-11-11 07:40] VITALS: BP 117/82
[2016-11-11 12:40] VITALS: BP 123/80
[2016-11-11 17:02] VITALS: BP 132/88
[2016-11-11 20:24] VITALS: BP 120/79
[2016-11-12 03:58] VITALS: BP 124/79
[2016-11-12 06:38] LABS: ABSOLUTE NEUTROPHILS 13.7 thou/uL (1.4-8.2); BASOPHILS 0.3 % (0.0-2.0); EOSINOPHILS 0.2 % (0.0-3.0); HEMATOCRIT 30.6 % (42.0-52.0); HEMOGLOBIN 10.4 gm/dL (14.0-18.0); LYMPHOCYTES 11.6 % (24.0-44.0); MCH 29.4 pg (26.0-34.0); MCHC 33.9 % (28.0-37.0); MCV 86.9 fL (80.0-100.0); MONOCYTES 10.7 % (1.0-8.0); PLATELET COUNT 291 thou/uL (150-400); POLYS 77.2 % (36.0-66.0); RBC 3.52 mil/uL (4.50-6.00); RDW 14.8 % (10.5-14.5); WBC 17.8 thou/uL (4.0-11.0)
[2016-11-12 06:40] LABS: MANUAL DIFF NO
[2016-11-12 07:04] LABS: ALBUMIN 2.8 g/dL (3.4-5.0); CALCIUM 9.2 mg/dL (8.5-10.1); CREATININE 1.3 mg/dL (0.6-1.3); PHOSPHORUS 4.1 mg/dL (2.5-4.9); POTASSIUM 3.8 mmol/L (3.5-5.1)
[2016-11-12 08:14] VITALS: BP 147/83
[2016-11-12 11:58] VITALS: BP 137/83
[2016-11-12 19:35] VITALS: BP 132/70
[2016-11-13 02:59] LABS: HEMATOCRIT 32.9 % (42.0-52.0); HEMOGLOBIN 10.9 gm/dL (14.0-18.0); MCH 29.3 pg (26.0-34.0); MCHC 33.2 % (28.0-37.0); MCV 88.3 fL (80.0-100.0); RBC 3.72 mil/uL (4.50-6.00); RDW 14.7 % (10.5-14.5); WBC 17.9 thou/uL (4.0-11.0)
[2016-11-13 03:13] LABS: CALCIUM 9.1 mg/dL (8.5-10.1); CREATININE 1.4 mg/dL (0.6-1.3); MAGNESIUM 2.3 mg/dL (1.8-2.4)
[2016-11-13 04:15] VITALS: BP 129/95
[2016-11-13 08:15] VITALS: BP 128/78
[2016-11-13] MEDS ORDERED: LISINOPRIL10 MG PO (08:46)
[2016-11-13] MEDS ORDERED: NORVASC5 MG PO (08:46)
[2016-11-13] MEDS ORDERED: TYLENOL325 MG PO (08:46)
[2016-11-13] MEDS ORDERED: METOPROLOL SUCC50 MG PO (08:46)
[2016-11-13] MEDS ORDERED: FERREX 150 PLU1 EAC1 PO (08:46)
[2016-11-13] MEDS ORDERED: ASPIR 8181 MG PO (08:46)
[2016-11-13] MEDS ORDERED: ATORVASTATIN CA40 MG PO (08:46)
[2016-11-13] MEDS ORDERED: AMBIEN 5 MG TABL5 M1 PO (08:46)
[2016-11-13 10:33] VITALS: BP 128/78
[2016-11-13 10:41] VITALS: BP 128/78
[2016-11-13] MEDS ORDERED: PACERONE 200 M200 M1 PO (10:45)
[2016-11-13] MEDS ORDERED: CRESTOR10 MG PO (11:24)
== END 2016-11-13 12:01 | disposition home or self-care (01) | DRG 233 ==
LOC: ER 20:05 → 2N 21:34 → EROBS 21:34 → 2N 22:27 → TBA 11-08 07:18 → ICU 11-08 14:41 → 2N 11-10 13:04
PROVIDERS: Emergency Medicine; Hospitalist; Internal Medicine Cardiovascular Disease; Internal Medicine Endocrinology, Diabetes & Metabolism; Internal Medicine Nephrology; Nurse Practitioner Acute Care; Specialist; Surgery Vascular Surgery
PROC: 4A023N7 Measurement of Cardiac Sampling and Pressure, Left Heart, Percutaneous Approach (ICD-10-PCS; 2016-11-07)
PROC: B2151ZZ Fluoroscopy of Left Heart using Low Osmolar Contrast (ICD-10-PCS; 2016-11-07)
PROC: B2111ZZ Fluoroscopy of Multiple Coronary Arteries using Low Osmolar Contrast (ICD-10-PCS; 2016-11-07)
PROC: 02100Z9 Bypass Coronary Artery, One Artery from Left Internal Mammary, Open Approach (ICD-10-PCS; principal; 2016-11-08)
PROC: 06BQ4ZZ Excision of Left Saphenous Vein, Percutaneous Endoscopic Approach (ICD-10-PCS; 2016-11-08)
PROC: 5A1221Z Performance of Cardiac Output, Continuous (ICD-10-PCS; 2016-11-08)
PROC: 021309W Bypass Coronary Artery, Four or More Arteries from Aorta with Autologous Venous Tissue, Open Approach (ICD-10-PCS; 2016-11-08)
DX: I21.4 Non-ST elevation (NSTEMI) myocardial infarction (principal); E43 Unspecified severe protein-calorie malnutrition; N17.9 Acute kidney failure, unspecified; D62 Acute posthemorrhagic anemia; I25.10 Atherosclerotic heart disease of native coronary artery without angina pectoris; E66.9 Obesity, unspecified; F17.210 Nicotine dependence, cigarettes, uncomplicated; I16.0 Hypertensive urgency; E78.1 Pure hyperglyceridemia; E78.00 Pure hypercholesterolemia, unspecified; M19.90 Unspecified osteoarthritis, unspecified site; E78.5 Hyperlipidemia, unspecified; D72.829 Elevated white blood cell count, unspecified; I48.0 Paroxysmal atrial fibrillation; E11.22 Type 2 diabetes mellitus with diabetic chronic kidney disease; N18.3 Chronic kidney disease, stage 3 (moderate); I12.9 Hypertensive chronic kidney disease with stage 1 through stage 4 chronic kidney disease, or unspecified chronic kidney disease; Z68.32 Body mass index [BMI] 32.0-32.9, adult; Z79.899 Other long term (current) drug therapy; Z99.81 Dependence on supplemental oxygen
CPT/HCPCS: 10078; 10081; 47000; 47001; 47002; 47297; 48888; 50010; 50249; 50409; 50456; 50498; 50668; 51301; 51306; 52131; 52259; 53327; 53358; 54118; 56524; 56525; 56526; 56527; 56528; 56531; 56534; 56660; 56805; 56898; 57093; 62110; 62950; 64029; 65002; 65003; 65020; 65043; 65090; 65120

== ENCOUNTER 2019-05-03 12:10 | Inpatient (IN) | payer BC ==
[~2019-05-03] VITALS: Ht 188 cm; Wt 117.0 kg
[~2019-05-03 12:10] MED LIST changes: +ALDACTONE25 MG PO; +AMBIEN 5 MG TABL5 M1 PO; +ASPIR 8181 MG PO; +ATORVASTATIN CA40 MG PO; +AVAPRO300 MG PO; +BYSTOLIC 5 MG5 M1 PO; +CRESTOR10 MG PO; +EDARBYCLOR 40-1 EAC1 PO; +FERREX 150 PLU1 EAC1 PO; +IBUPROFEN 200200 M1 PO; +LISINOPRIL10 MG PO; +METOPROLOL SUCC50 MG PO; +NORVASC5 MG PO; +PACERONE 200 M200 M1 PO; +TYLENOL325 MG PO
[2019-05-03 12:12] VITALS: BP 116/75
[2019-05-03] MEDS ORDERED: EDARBYCLOR 40-1 EAC1 PO (12:29)
[2019-05-03] MEDS ORDERED: BYSTOLIC20 MG PO (12:29)
[2019-05-03] MEDS ORDERED: AMLODIPINE BESY10 MG PO (12:29)
[2019-05-03] MEDS ORDERED: CRESTOR40 MG PO (12:30)
[2019-05-03] MEDS ORDERED: ZETIA10 MG PO (12:30)
[2019-05-03] MEDS ORDERED: GLYBURIDE 5 MG T5 M1 PO (12:31)
[2019-05-03 12:32] LABS: ABSOLUTE NEUTROPHILS 7.6 thou/uL (1.4-8.2); BASOPHILS 0.7 % (0.0-2.0); EOSINOPHILS 0.4 % (0.0-3.0); HEMOGLOBIN 15.2 gm/dL (14.0-18.0); LYMPHOCYTES 21.5 % (24.0-44.0); MCH 28.8 pg (26.0-34.0); MCHC 34.6 g/dL (28.0-37.0); MCV 83.1 fL (80.0-100.0); MONOCYTES 7.9 % (1.0-8.0); PLATELET COUNT 312 thou/uL (150-400); POLYS 69.5 % (36.0-66.0); RBC 5.29 mil/uL (4.50-6.00); RDW 13.3 % (10.5-14.5); WBC 10.9 thou/uL (4.0-11.0)
[2019-05-03] MEDS ORDERED: METFORMIN HCL500 MG PO (12:32)
[2019-05-03 12:54] LABS: ALBUMIN 3.6 g/dL (3.4-5.0); CALCIUM 9.8 mg/dL (8.5-10.1); CREATININE 2.4 mg/dL (0.7-1.3); POTASSIUM 3.3 mmol/L (3.5-5.1); TOTAL BILIRUBIN 0.7 mg/dL (<0.1-1.0); TOTAL PROTEIN 7.9 g/dL (6.4-8.2)
[2019-05-03 14:24] VITALS: BP 147/105
[2019-05-03 14:57] VITALS: BP 132/90
[2019-05-03 15:47] VITALS: BP 148/51
--- NOTE | 2019-05-03 16:47 | NUR ---
ADMISSION HX AND EDUCATION COMPLETED. PT RESTING IN BED. AT BEDSIDE. WILL CONT. TO MONITOR.
--- NOTE | 2019-05-03 19:16 | NUR ---
48 YO MALE ADMITTED FROM ED TO 424 BY W/C. A&OX4, NS STARTED AT 100/HR IN L AC PIV. UP AD ARMIDA. BLOOD SUGAR AT 325, 9 UNITS LISPRO GIVEN. ORIENTED PT TO ROOM CALL LIGHT, FAMILY AT BEDSIDE.
[2019-05-03 19:42] VITALS: BP 161/88
--- NOTE | 2019-05-04 00:45 | NUR ---
PATIENT ALERT AND ORIENTED X4. FAMILY AT BEDSIDE IN EARLY EVENING. DENIES PAIN. UP ADLIB IN ROOM. CONTINUOUS IVF INFUSING W/O COMPLICATION. BS MONITORED PER ORDER. COOPERATIVE WITH CARE. RESTING QUIETLY. WILL MONITOR.
[2019-05-04 05:02] VITALS: BP 169/93
[2019-05-04 05:43] LABS: HEMATOCRIT 39.2 % (42.0-52.0); HEMOGLOBIN 13.7 gm/dL (14.0-18.0); MCHC 34.9 g/dL (28.0-37.0); MCV 83.1 fL (80.0-100.0); RBC 4.72 mil/uL (4.50-6.00); RDW 13.6 % (10.5-14.5); WBC 10.8 thou/uL (4.0-11.0)
[2019-05-04 05:56] LABS: CALCIUM 8.9 mg/dL (8.5-10.1); POTASSIUM 3.1 mmol/L (3.5-5.1)
[2019-05-04 05:58] LABS: CREATININE 1.4 mg/dL (0.7-1.3)
--- NOTE | 2019-05-04 07:21 | NUR ---
PATIENTS POTASSIUM WAS LOW THIS MORNING 3.1. ORDER RECEIVED FROM [facility]TER (GAGE) FOR 40MEQ PO X1 OF K+ WHICH WAS GIVEN BY THIS NURSE. ALSO ORDERED WAS MAGNESIUM SULFATE 2G IVPB WHICH WAS ORDERED BY THIS NURSE FROM PHARMACY AND WILL BE GIVEN BY AM NURSE.
[2019-05-04 07:29] VITALS: BP 152/92
--- NOTE | 2019-05-04 13:37 | NUR ---
PT A&OX4, UP AD ARMIDA. IV INTACT IN L AC INFUSING FLUIDS W/O COMPS. BLOOD GLUCOSE BEING MONITORED SEE FLOW, PT IS COMPLIANT WITH DIET AND MEDICATINS. WILL CONT. POC.
[2019-05-04 16:52] VITALS: BP 129/86
[2019-05-04 19:18] VITALS: BP 140/95
--- NOTE | 2019-05-05 02:01 | NUR ---
ASSESSMENT COMPLETED.PT UP ADLIB IN HIS ROOM.IVF INFUSING ORDERED.BG MONITORED WITH INS[employer] COVERAGE.PT ABLE TO MAKE HIS NEEDS KNOWN.CALL LIGHT WITHIN REACH.
[2019-05-05 04:41] VITALS: BP 130/91
[2019-05-05 06:17] LABS: HEMATOCRIT 39.5 % (42.0-52.0); HEMOGLOBIN 13.6 gm/dL (14.0-18.0); MCH 28.6 pg (26.0-34.0); MCHC 34.3 g/dL (28.0-37.0); MCV 83.4 fL (80.0-100.0); RBC 4.73 mil/uL (4.50-6.00); RDW 13.8 % (10.5-14.5); WBC 11.2 thou/uL (4.0-11.0)
[2019-05-05 06:32] LABS: CALCIUM 8.9 mg/dL (8.5-10.1); CREATININE 1.3 mg/dL (0.7-1.3)
[2019-05-05 06:36] LABS: POTASSIUM 2.9 mmol/L (3.5-5.1)
--- NOTE | 2019-05-05 08:07 | NUR ---
RECEIVED PT APPROZ 0700. A/O. DENIES PAIN. NO NOTED SOA. NO NV. PT RESTING IN BED. UP AD ARMIDA. NO CONCERNS VOICED AT THIS TIME. WILL CONT. TO MONITOR.
[2019-05-05 08:11] VITALS: BP 131/93
[2019-05-05] MEDS ORDERED: LANTUS100 UNIT/M SUBQ (12:54)
[2019-05-05 13:57] VITALS: BP 131/93
== END 2019-05-05 15:34 | disposition home or self-care (01) | DRG 637 ==
LOC: ER 12:10 → 4E 14:24 → EROBS 14:40 → 4E 14:40 → ENTRNSPT 05-05 14:43 → EDTRNSPTSTS 05-05 14:45 → 4E 05-05 15:34
PROVIDERS: Emergency Medicine; ADMIT Hospitalist
DX: E11.65 Type 2 diabetes mellitus with hyperglycemia (principal); E11.00 Type 2 diabetes mellitus with hyperosmolarity without nonketotic hyperglycemic-hyperosmolar coma (NKHHC); E87.2 Acidosis; N17.9 Acute kidney failure, unspecified; N18.9 Chronic kidney disease, unspecified; I25.10 Atherosclerotic heart disease of native coronary artery without angina pectoris; I12.9 Hypertensive chronic kidney disease with stage 1 through stage 4 chronic kidney disease, or unspecified chronic kidney disease; E11.22 Type 2 diabetes mellitus with diabetic chronic kidney disease; E78.5 Hyperlipidemia, unspecified; Z95.1 Presence of aortocoronary bypass graft; Z79.82 Long term (current) use of aspirin; Z79.899 Other long term (current) drug therapy; Z79.84 Long term (current) use of oral hypoglycemic drugs; Z87.891 Personal history of nicotine dependence
CPT/HCPCS: 10084

== ENCOUNTER → 2021-10-27 | Outpatient (CLI) | payer BC ==
[~2021-10-27] MED LIST changes: +AMLODIPINE BESY10 MG PO; +BYSTOLIC20 MG PO; +CRESTOR40 MG PO; +GLYBURIDE 5 MG T5 M1 PO; +LANTUS100 UNIT/M SUBQ; +METFORMIN HCL500 MG PO; +ZETIA10 MG PO
== END ==
LOC: SJCVCIMAG 09:08
PROVIDERS: ATTEND Internal Medicine Cardiovascular Disease
DX: I25.10 Atherosclerotic heart disease of native coronary artery without angina pectoris (principal); I10 Essential (primary) hypertension; E11.9 Type 2 diabetes mellitus without complications; Z95.1 Presence of aortocoronary bypass graft